=== PATIENT | female | born 1965 | race Two or more races ===

== ENCOUNTER 2017-06-03 17:17 | Emergency (ER) | payer OTHER ==
[~2017-06-03] VITALS: Ht 157.5 cm; Wt 64.0 kg
[2017-06-03 18:59] LABS: BASOPHILS % 1.2 % (0.0-2.0); EOSINOPHILS % 1.8 % (0.0-5.0); HEMATOCRIT. 27.7 % (36.0-48.0); HEMOGLOBIN. 8.5 g/dL (12.0-16.0); LYMPHOCYTES % 33.7 % (20.0-50.0); MEAN CORPUSCULAR HEMOGLOBIN 20.9 pg (28.0-32.0); MEAN PLATELET VOLUME 7.1 fl (7.4-10.4); MONOCYTES % 9.2 % (2.0-8.0); NEUTROPHILS % 54.1 % (40.0-76.0); PLATELET 452 x1000/uL (130-400); RED BLOOD CELL COUNT 4.08 mill/uL (4.2-5.4); RED CELL DISTRIBUTION WIDTH 19.8 % (11.6-14.6)
[2017-06-03 19:01] VITALS: BP 129/76
[2017-06-03 19:01] LABS: CHLORIDE 104 mEq/L (98-107)
[2017-06-03 19:04] LABS: PARTIAL THROMBOPLASTIN TIME 24.2 sec (23.4-31.0)
[2017-06-03 19:09] LABS: CARBON DIOXIDE 30 mEq/L (21-32)
[2017-06-03 19:10] LABS: TOTAL IRON BINDING CAPACITY 406 ug/dL (250-450); TROPONIN I < 0.02 ng/mL (0.00-0.04)
[2017-06-03 19:23] LABS: PLATELET ESTIMATE INCREASED
== END 2017-06-03 20:02 | disposition home or self-care (01) ==
LOC: ER 17:17 → CANBEDREQ 20:10
DX: D64.9 Anemia, unspecified (principal); R42 Dizziness and giddiness; R79.9 Abnormal finding of blood chemistry, unspecified
CPT/HCPCS: 36415; 71010; 80053; 83540; 83550; 83690; 83880; 84484; 85025; 85044; 85610; 85730; 86850; 86900; 86901; 93005; 99285; Z7610